=== PATIENT | male | born 1960 | race Caucasian/White ===

== ENCOUNTER → 2019-07-17 | Outpatient (CLI) | payer BC ==
--- NOTE | 2019-07-18 10:46 | PCVCIMAG ---
APPROVED REPORT Study performed: 07/17/2019 14:12:43 EXAM: Comprehensive 2D, Doppler, and color-flow Echocardiogram Patient Location: Echo lab Room #: 3Status: routine BSA: 1.99 HR: 64 bpmBP: 126/72 mmHg Rhythm: NSR Other Information Study Quality: Good Risk Factors: Cardiac Risk Factors: Hyperlipidemia Indications Mitral Valve Prolapse Hx Endocarditis 2D Dimensions IVSd: 7.23 (7-11mm)LVOT Diam: 22.83 (18-24mm) LVDd: 59.61 mm PWd: 8.27 (7-11mm)Ascending Ao: 33.80 (22-36mm) LVDs: 36.27 (25-40mm) Left Atrium: 46.87 (27-40mm) Aortic Root: 25.62 mm LV Single Plane 4CH: 67.15 % LV Single Plane 2CH: 63.68 % Biplane EF: 65.7 % Volumes Left Atrial Volume (Systole) Single Plane 4CH: 96.84 mLSingle Plane 2CH: 134.50 mL Biplane LA Volume: 125.00 mLLA ESV Index: 63.00 mL/m2 Aortic Valve AoV Peak Juan Antonio.: 1.35 m/s AO Peak Gr.: 7.29 mmHgLVOT Max P.26 mmHg LVOT Max V: 0.90 m/s CHRISTY Vmax: 2.73 cm2 Mitral Valve E/A Ratio: 1.0 MV Decel. Time: 107.86 ms MV E Max Juan Antonio.: 1.17 m/s MV A Juan Antonio.: 1.16 m/s IVRT: 55.36 ms TDI E/Lateral E': 13.00E/Medial E': 9.75 Medial E' Juan Antonio.: 0.12 m/s Lateral E' Juan Antonio.: 0.09 m/s Pulmonary Valve PV Peak Juan Antonio.: 1.14 m/sPV Peak Gr.: 5.19 mmHg Pulmonary Vein P Vein S: 0.56 m/sP Vein A: 0.46 m/s P Vein D: 0.73 m/sP Vein A Dur.: 114.2 msec P Vein S/D Ratio: 0.77 Tricuspid Valve TR Peak Juan Antonio.: 2.13 m/s TR Peak Gr.: 18.14 mmHg TV Vmax: 0.67 m/sPA Pressure: 25.00 mmHg Left Ventricle Left ventricle is mildly dilated. There is normal LV segmental wall motion. There is normal left ventricular wall thickness. Left ventricular systolic function is normal. The left ventricular ejection fraction is within the normal range. LVEF is 65-70%. Right Ventricle The right ventricle is normal size. The right ventricular systolic function is normal. Atria Left atrium is severely dilated. The right atrium size is normal. Aortic Valve Aortic valve is trileaflet. The aortic valve is normal in structure and function. No aortic regurgitation is present. There is no aortic valvular stenosis. Mitral Valve Mild bileaflet prolapse is seen. Leaflets have normal excursion. Anterior leaflet tip is rounded and bright Moderate to severe mitral regurgitation with an eccentric jet. No evidence of mitral valve stenosis. Mild bi-leaflet mitral valve prolapse. Tricuspid Valve The tricuspid valve is normal in structure. Trace to mild tricuspid regurgitation with a PA pressure of 25 mmHg. Pulmonic Valve The pulmonary valve is normal in structure. There is no pulmonic valvular regurgitation. Great Vessels The aortic root is normal in size. The ascending aorta is normal in size. Aortic arch is normal in caliber. IVC is normal in size and collapses >50% with inspiration. Pericardium There is no pericardial effusion. There is no pleural effusion. <Conclusion> Left ventricle is mildly dilated. LVEF is 65-70%. Left atrium is severely dilated. Aortic valve is trileaflet. The aortic valve is normal in structure and function. Mild bileaflet prolapse is seen. Leaflets have normal excursion. Anterior leaflet tip is rounded and bright Moderate to severe mitral regurgitation with an eccentric jet. The tricuspid valve is normal in structure. Trace to mild tricuspid regurgitation with a PA pressure of 25 mmHg. The pulmonary valve is normal in structure. There is no pericardial effusion.
== END | disposition home or self-care (01) ==
LOC: PCVCIMAG 13:59
PROVIDERS: ATTEND Internal Medicine
DX: I08.1 Rheumatic disorders of both mitral and tricuspid valves (principal)
CPT/HCPCS: 93306